=== PATIENT | male | born 1995 ===

== ENCOUNTER 2017-01-09 17:58 | Emergency (ER) | payer OTHER ==
[2017-01-09 18:25] VITALS: BP 105/56
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
== END 2017-01-09 19:09 | disposition home or self-care (01) ==
LOC: UCEAST 17:58
DX: T33.832A Superficial frostbite of left toe(s), initial encounter (principal); T33.831A Superficial frostbite of right toe(s), initial encounter; X31.XXXA Exposure to excessive natural cold, initial encounter; Y93.55 Activity, bike riding; Y92.9 Unspecified place or not applicable
CPT/HCPCS: 99201; G0463